=== PATIENT | male | born 1975 | race Caucasian/White ===

== ENCOUNTER → 2020-10-28 | Outpatient (CLI) | payer OTHER ==
[~2020-10-28] MED LIST: BLEPH-105 ML OPHTHALMIC; CIPROFLOXACIN500 M1 PO; HYDROCODONE-AP1 EAC6 PO; NOHOMEMEDICATIONS; PREDNISONE 20 M20 M1 PO
[2020-10-28 14:28] LABS: ABSOLUTE EOSINOPHILS 0.1 thou/uL (0.0-0.7); ABSOLUTE LYMPHOCYTES 0.8 thou/uL (0.8-5.3); ABSOLUTE MONOCYTES 0.5 thou/uL (0.0-1.2); ABSOLUTE NEUTROPHILS 3.1 thou/uL (1.6-8.1); EOSINOPHILS 1.6 %; HEMATOCRIT 40.6 % (42.0-52.0); HEMOGLOBIN 13.6 gm/dL (14.0-18.0); MCH 27.9 pg (26.0-34.0); MCHC 33.6 g/dL (28.0-37.0); MONOCYTES 11.1 %; MPV 9.3 fl. (7.2-11.1); NUCLEATED RBCS 0 /100WBC; PLATELET COUNT* 211 thou/uL (150-400); POLYS 68.3 %; RBC 4.89 mil/uL (4.50-6.00); RDW-CV 13.9 % (10.5-14.5); WBC 4.6 thou/uL (4.0-11.0)
[2020-10-28 15:40] LABS: ESR (SEDRATE) 9 mm/hr (0-15)
[2020-10-29 17:07] LABS: ANA INTERPRETATION Negative (())
== END ==
LOC: M.LAB 13:46
DX: H30.92 Unspecified chorioretinal inflammation, left eye (principal)

== ENCOUNTER 2021-01-15 16:57 | Emergency (ER) | payer OTHER ==
[~2021-01-15] VITALS: Ht 175.3 cm; Wt 91.6 kg
[2021-01-15] MEDS ORDERED: EYE DROPS (17:37)
[2021-01-15] MEDS ORDERED: APAP W/CODEINE1 TA2 PO (18:18)
[2021-01-15 18:24] VITALS: BP 153/99
== END 2021-01-15 18:25 | disposition home or self-care (01) ==
LOC: M.ERS 16:57
DX: U07.1 COVID-19 (principal); Z79.899 Other long term (current) drug therapy